=== PATIENT | male | born 1985 | race Caucasian/White ===

== ENCOUNTER 2017-05-15 20:20 | Emergency (ER) | payer SELFPAY ==
[~2017-05-15] VITALS: Ht 188 cm; Wt 131.5 kg
[2017-05-15 20:25] VITALS: BP 127/82
[2017-05-15] MEDS ORDERED: HYDROcodone/APAP 5/325MG 1 TAB TABLET PO ONE (21:00)
[2017-05-15] MEDS ORDERED: HYDR-2758 PO (21:02)
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
== END 2017-05-15 21:20 | disposition home or self-care (01) ==
LOC: ER 20:20
DX: S93.401A Sprain of unspecified ligament of right ankle, initial encounter (principal); Z88.0 Allergy status to penicillin; V29.9XXA Motorcycle rider (driver) (passenger) injured in unspecified traffic accident, initial encounter; Y93.55 Activity, bike riding; Y99.8 Other external cause status; Y92.89 Other specified places as the place of occurrence of the external cause
CPT/HCPCS: 73610; 99284

== ENCOUNTER 2018-03-06 08:10 | Emergency (ER) | payer SELFPAY ==
[~2018-03-06] VITALS: Ht 188 cm; Wt 131.2 kg
[~2018-03-06 08:10] MED LIST: HYDR-2758 PO
[2018-03-06] MEDS ORDERED: IBUPROFEN 600 MG TABLET. PO ONE ×2 (08:38→09:00)
--- NOTE | 2018-03-06 08:44 | PHYS DOC ---
Past History Past Medical History: No Pertinent History Past Surgical History: Other Alcohol Use: Occasionally Drug Use: None Adult General Chief Complaint Chief Complaint: LOWER EXT PAIN HPI HPI Patient is a 32-year-old male who presents for evaluation of left lower leg pain and swelling which started a few days ago. He states there is been no trauma or injury. He first noticed the swelling after driving back from [place] a few days ago. He drove there and back and states that each leg of the drive was approximately 4 hours. He has no personal history of DVT or PE but states that 2 family members have had DVTs in their legs. He denies any known family history of a clotting disorder. He is alert and oriented 4, calm, appears to be in no distress. His pain is primarily from the ankle to the upper foot and left side. He denies palpitations, cough/hemoptysis, cp, or sob. Review of Systems Review of Systems Constitutional: Denies fever or chills [] Eyes: Denies change in visual acuity, redness, or eye pain [] HENT: Denies nasal congestion or sore throat [] Respiratory: Denies cough or shortness of breath [] Cardiovascular: No additional information not addressed in HPI [] GI: Denies abdominal pain, nausea, vomiting, bloody stools or diarrhea [] : Denies dysuria or hematuria [] Musculoskeletal: Denies back pain. Left lower leg/ankle/foot pain and swelling Integument: Denies rash or skin lesions [] Neurologic: Denies headache, focal weakness or sensory changes [] Endocrine: Denies polyuria or polydipsia [] All other systems were reviewed and found to be within normal limits, except as documented in this note. Current Medications Current Medications Current Medications Medications (Trade) Dose Ordered Sig/[facility] Start Time Stop Time Status Last Admin Dose Admin Ibuprofen (Motrin) 600 mg 1X ONCE 03/06/18 08:45 03/06/18 08:46 UNV Allergies Allergies Allergies Coded Allergies Type Severity Reaction Last Updated Verified Penicillins Allergy Intermediate Swelling 05/15/17 Yes Physical Exam Physical Exam Constitutional: Well developed, well nourished, no acute distress, non-toxic appearance. [] HENT: Normocephalic, atraumatic, bilateral external ears normal, oropharynx moist, no oral exudates, nose normal. [] Eyes: PERRLA, EOMI, conjunctiva normal, no discharge. [] Neck: Normal range of motion, no tenderness, supple, no stridor. [] Cardiovascular:Heart rate regular rhythm, no murmur [] Lungs & Thorax: Bilateral breath sounds clear to auscultation [] Abdomen: Bowel sounds normal, soft, no tenderness, no masses, no pulsatile masses. [] Skin: Warm, dry, no erythema, no rash. [] Back: No tenderness, no CVA tenderness. [] Extremities: no cyanosis, no clubbing, ROM intact [] 1+ non-pitting edema in both lower leg/ankle/foot, +ttp, CMS intact distally with normal cap refill, 2+ dp/tp pulses, and normal sensation/strength Neurologic: Alert and oriented X 3, normal motor function, normal sensory function, no focal deficits noted. [] Psychologic: Affect normal, judgement normal, mood normal. [] Current Patient Data Vital Signs Vital Signs Date Time Temp Pulse Resp B/P (MAP) Pulse Ox O2 Delivery O2 Flow Rate FiO2 03/06/18 08:10 98.6 88 18 96 Room Air EKG EKG [] Radiology/Procedures Radiology/Procedures Current Medications Medications (Trade) Dose Ordered Sig/Malena Route PRN Reason Start Time Stop Time Status Last Admin Dose Admin Ibuprofen (Motrin) 600 mg 1X ONCE PO 03/06/18 09:00 03/06/18 09:01 DC 03/06/18 08:41 Ibuprofen (Motrin) 600 mg STK-MED ONCE PO 03/06/18 08:38 03/06/18 08:[address] [address] IMAGING REPORT Signed PATIENT: MARCELINO BARRETO ACCOUNT: [id number] : 1985 LOCATION: ER AGE: 32 SEX: M EXAM STATUS: REG ER ORD. PHYSICIAN: INGRID WILSON DO REASON: left lower leg pain/swelling, no trauma, recent long car ride PROCEDURE: VENOUS LOWER EXTREMITY LEFT Left Lower Extremity Venous Doppler Ultrasound Indication: Left lower extremity pain and swelling, recent car ride. Comparison: None. Procedure: Color Doppler, spectral Doppler, and grayscale images with and without compression are obtained in the area of the common femoral vein, superficial femoral vein - femoral vein junction, main femoral vein (superficial femoral vein) and popliteal vein. Veins of the proximal calf are also imaged. Findings: There is normal duplex flow, color flow and compressibility of all visualized vein segments. There is no evidence of deep venous thrombosis. Impression: No evidence of left lower extremity deep venous thrombosis. Electronically signed by: Naif Jimenez MD (03/06/2018 9:10 AM) [place] [address] DICTATED AND SIGNED BY: NAIF JIMENEZ MD DATE: 03/06/18908 CC: INGRID WILSON DO; MAMI BOSE MD ~ Course & Med Decision Making Course & Med Decision Making Pertinent Labs and Imaging studies reviewed. (See chart for details) [address] [address] IMAGING REPORT Signed PATIENT: MARCELINO BARRETO ACCOUNT: [id number] : 1985 LOCATION: ER AGE: 32 SEX: M EXAM STATUS: REG ER ORD. PHYSICIAN: INGRID WILSON DO REASON: left lower leg pain/swelling, no trauma, recent long car ride PROCEDURE: VENOUS LOWER EXTREMITY LEFT Left Lower Extremity Venous Doppler Ultrasound Indication: Left lower extremity pain and swelling, recent car ride. Comparison: None. Procedure: Color Doppler, spectral Doppler, and grayscale images with and without compression are obtained in the area of the common femoral vein, superficial femoral vein - femoral vein junction, main femoral vein (superficial femoral vein) and popliteal vein. Veins of the proximal calf are also imaged. Findings: There is normal duplex flow, color flow and compressibility of all visualized vein segments. There is no evidence of deep venous thrombosis. Impression: No evidence of left lower extremity deep venous thrombosis. Electronically signed by: Naif Jimenez MD (03/06/2018 9:10 AM) [place] [address] DICTATED AND SIGNED BY: NAIF JIMENEZ MD DATE: 03/06/18908 CC: INGRID WILSON DO; MAMI BOSE MD ~ @1050 - patient updated on imaging results which show no evidence to suggest a DVT. Informed the patient that it would be a good idea to taking 81 mg aspirin daily especially when traveling long distances in a car or airplane given his family history. Dragon Disclaimer Dragon Disclaimer This electronic medical record was generated, in whole or in part, using a voice recognition dictation system. Departure Departure: Impression: Primary Impression: Left leg pain Additional Impression: Feared condition not demonstrated Disposition: 01 HOME, SELF-CARE Condition: STABLE Referrals: MAMI BOSE MD (PCP) Patient Instructions: Edema Additional Instructions: Take ibuprofen or Tylenol at home for pain relief. As discussed when you're traveling, given her family history, it would be good idea to take an 81 mg aspirin daily. This would apply to driving over 2 hours and or any plane flights. Follow-up with your doctor in the next 2-3 days. Return to the emergency Department immediately for new or worsening symptoms. Problem Qualifiers INGRID WILSON DO Mar 06, 2018 08:44
--- NOTE | 2018-03-06 09:13 | RAD ---
Left Lower Extremity Venous Doppler Ultrasound Indication: Left lower extremity pain and swelling, recent car ride. Comparison: None. Procedure: Color Doppler, spectral Doppler, and grayscale images with and without compression are obtained in the area of the common femoral vein, superficial femoral vein - femoral vein junction, main femoral vein (superficial femoral vein) and popliteal vein. Veins of the proximal calf are also imaged. Findings: There is normal duplex flow, color flow and compressibility of all visualized vein segments. There is no evidence of deep venous thrombosis. Impression: No evidence of left lower extremity deep venous thrombosis. Electronically signed by: Naif Harvey MD (03/06/2018 9:10 AM) [place] [id number]
[2018-03-06 11:07] LABS: BASO # 0.1 x10^3/uL (0.0-0.2); BASO % 1 % (0-3); EOS # 0.9 x10^3/uL (0.0-0.7); EOS % 11 % (0-3); HEMATOCRIT 49.2 % (39.0-53.0); HEMOGLOBIN 16.6 g/dL (13.0-17.5); LYMPH % 24 % (24-48); MEAN CORPUSCULAR HEMOGLOBIN 29 pg (25-35); MEAN CORPUSCULAR HGB CONC 34 g/dL (31-37); MEAN CORPUSCULAR VOLUME 86 fL (79-100); MONO # 0.5 x10^3/uL (0.0-1.1); MONO % 6 % (0-9); NEUT # 4.9 x10^3uL (1.8-7.7); NEUT % 58 % (31-73); PLATELET COUNT 283 x10^3/uL (140-400); RED BLOOD COUNT 5.72 x10^6/uL (4.30-5.70); RED CELL DISTRIBUTION WIDTH 13.2 % (11.5-14.5); WHITE BLOOD COUNT 8.5 x10^3/uL (4.0-11.0)
[2018-03-06 11:14] VITALS: BP 140/86
[2018-03-06 11:20] LABS: ALBUMIN 3.9 g/dL (3.4-5.0); CALCIUM 9.1 mg/dL (8.5-10.1); CREATININE 0.8 mg/dL (0.7-1.3); GFR 110.7; MAGNESIUM 2.1 mg/dL (1.8-2.4); POTASSIUM 4.2 mmol/L (3.5-5.1); TOTAL BILIRUBIN 0.5 mg/dL (0.2-1.0); TOTAL PROTEIN 7.8 g/dL (6.4-8.2)
== END 2018-03-06 11:14 | disposition home or self-care (01) ==
LOC: ER 08:10
DX: M79.662 Pain in left lower leg (principal); R22.42 Localized swelling, mass and lump, left lower limb; Z71.1 Person with feared health complaint in whom no diagnosis is made; Z88.0 Allergy status to penicillin
CPT/HCPCS: 36415; 80053; 83735; 85025; 93971; 99285-25

== ENCOUNTER → 2018-09-13 | Outpatient (CLI) | payer BC ==
[~2018-09-13] MED LIST changes: +HYDR-2155 PO; -HYDR-2758 PO
--- NOTE | 2018-09-13 11:22 | RAD ---
Bilateral lower extremity arterial duplex ultrasound 09/13/2018 INDICATION: Cellulitis, edema. Leg pain. COMPARISON STUDY: None FINDINGS: Ultrasound evaluation of the major arteries of the bilateral lower extremities was performed including color Doppler imaging spectral analysis. Major arteries of the bilateral lower extremities appear patent. No high-grade visual stenosis is seen. No aneurysm or occlusion is seen.No abnormal waveform morphology or focal elevation of velocity suggesting a hemodynamically significant stenosis is identified. IMPRESSION: Normal sonographic evaluation of the major arteries of the bilateral lower extremities. Electronically signed by: Aneesh Pino MD (09/13/2018 11:17 AM) [id number]
--- NOTE | 2018-09-13 11:35 | RAD ---
Bilateral lower extremity venous insufficiency ultrasound exam, 09/13/2018: HISTORY: Leg edema, cellulitis Duplex evaluation of the saphenous veins in both lower extremities was performed including grayscale, color-flow and spectral Doppler analysis. The right greater saphenous vein measures 7 mm in diameter proximally and does not demonstrate significant reflux. The left greater saphenous vein measures 5 mm proximally and also does not demonstrate significant reflux. Both lesser saphenous veins are patent and do not demonstrate significant reflux. IMPRESSION: No significant reflux is identified in the saphenous veins in either lower extremity. Electronically signed by: Chago Mansfield MD (09/13/2018 11:30 AM) [facility]
== END | disposition home or self-care (01) ==
LOC: US 09:13
PROVIDERS: ATTEND Nurse Practitioner Family
DX: L03.116 Cellulitis of left lower limb (principal); L03.115 Cellulitis of right lower limb; I87.2 Venous insufficiency (chronic) (peripheral); R60.1 Generalized edema
CPT/HCPCS: 93925; 93970